=== PATIENT | female | born 1945 | race Caucasian/White ===

== ENCOUNTER 2021-07-12 22:26 | Observation (INO) ==
[2021-07-12] MEDS ORDERED: Isovue-370 500 ML BOTTLE IVP ONE ×2 (22:40→23:35)
[2021-07-12] MEDS ORDERED: Aspirin 325 MG TABLET PO STA (22:51)
[2021-07-12] MEDS ORDERED: Nitroglycerin 0.4 MG TAB.SUBL SL PRN (22:51)
[2021-07-12 23:09] LABS: Basophils # 0.1 K/mcL (0.0-0.2); Basophils % 0.6 %; Eosinophils # 0.2 K/mcL (0.0-0.6); Eosinophils % 2.3 %; Hematocrit 47.4 % (35.3-44.9); Hemoglobin 15.4 g/dL (11.5-15.4); Immature Granulocytes % 0.5 % (0-4); Lymphocytes # 2.7 K/mcL (0.6-4.6); Lymphocytes % 29.7 %; Mean Corpuscular HGB Conc 32.5 g/dL (31.6-35.5); Mean Corpuscular Hemoglobin 28.1 pg (28.0-33.3); Mean Corpuscular Volume 86.3 fL (83.0-100.0); Mean Platelet Volume 9.3 fL (9.4-12.4); Monocytes # 0.6 K/mcL (0.0-1.3); Monocytes % 6.6 %; Neutrophils # 5.6 K/mcL (1.6-8.9); Platelet Count 195 K/mcL (140-400); Red Blood Count 5.49 M/mcL (3.82-4.97); Red Cell Distribution Width 15.9 % (11.5-14.5); Segmented Neutrophils % 60.3 %; White Blood Count 9.2 K/mcL (4.3-11.1)
[2021-07-12 23:23] LABS: Albumin 4.6 g/dL (3.5-5.7); Albumin/Globulin Ratio 1.4 (1.1-2.2); Bilirubin,Direct 0.1 mg/dL (0.0-0.2); Bilirubin,Indirect 0.5 mg/dL (0.0-1.0); Bilirubin,Total 0.6 mg/dL (0.3-1.0); Globulin 3.2 g/dL (2.4-3.5); Total Protein 7.8 g/dL (6.4-8.9)
[2021-07-12 23:25] LABS: BUN/Creatinine Ratio 19 (6-26); Blood Urea Nitrogen 20 mg/dL (8-23); Calcium 9.6 mg/dL (8.6-10.3); Carbon Dioxide 28 mEq/L (23-29); Chloride 103 mEq/L (98-107); Glucose 111 mg/dL (70-105); Osmolality,Calculated 295 (280-300); Potassium 2.9 mEq/L (3.5-5.1); Sodium 141 mEq/L (136-145); eGFR For African Americans > 60 (> 60); eGFR For Non-African Americans 51 (> 60)
[2021-07-12 23:26] LABS: Troponin I < 0.03 ng/mL (< 0.04)
[2021-07-13] MEDS ORDERED: Potassium Chloride Elixir 20 MEQ/15 ML UDC PO ONE (00:43)
[2021-07-13] MEDS ORDERED: Pantoprazole 40 MG VIAL IVP ONE (01:13)
[2021-07-13] MEDS ORDERED: Simethicone 80 MG TAB.CHEW PO PRN (03:04)
[2021-07-13] MEDS ORDERED: Perflutren Lipid Microsphere 1.3 ML in 0.9 % Sodium Chloride 8.7 ML IVP PRN (03:23)
[2021-07-13] MEDS ORDERED: Naloxone 0.4 MG/ML INJ IVP PRN (03:35)
[2021-07-13] MEDS ORDERED: Morphine Sulfate 2 MG/ML SYRINGE IVP PRN (04:16)
[2021-07-13 04:49] LABS: Bilirubin,Urine Negative (Negative); Blood,Urine Moderate (Negative); Clarity,Urine Clear (Clear); Color,Urine Yellow (Yellow); Glucose,Urine (UA) Normal (Normal); Ketones,Urine Negative (Negative); Leukocyte Esterase,Urine Negative (Negative); Nitrite,Urine Negative (Negative); Protein,Urine Trace mg/dL (Neg-Trace); RBC,Urine 30-50 per hpf (0-3); Specific Gravity,Urine > 1.030 (1.010-1.025); Squamous Epithelial Cell,Urine Few per hpf (None-Few)
[2021-07-13 04:58] LABS: Bacteria,Urine Few per hpf (None-Few)
[2021-07-13 06:34] LABS: Hematocrit 44.3 % (35.3-44.9); Hemoglobin 14.4 g/dL (11.5-15.4); Mean Corpuscular HGB Conc 32.5 g/dL (31.6-35.5); Mean Corpuscular Hemoglobin 27.8 pg (28.0-33.3); Mean Corpuscular Volume 85.5 fL (83.0-100.0); Mean Platelet Volume 9.6 fL (9.4-12.4); Platelet Count 201 K/mcL (140-400); Red Blood Count 5.18 M/mcL (3.82-4.97); Red Cell Distribution Width 15.8 % (11.5-14.5); White Blood Count 9.7 K/mcL (4.3-11.1)
[2021-07-13 07:01] LABS: Influenza A PCR Negative (Negative); Influenza B PCR Negative (Negative); Resp. Syncytial Virus PCR Negative (Negative)
[2021-07-13 07:04] LABS: BUN/Creatinine Ratio 18 (6-26); Blood Urea Nitrogen 16 mg/dL (8-23); Calcium 9.2 mg/dL (8.6-10.3); Carbon Dioxide 26 mEq/L (23-29); Chloride 103 mEq/L (98-107); Chol/HDL Ratio 2.3 (0-4.9); Cholesterol 121 mg/dL (< 200); Glucose 120 mg/dL (70-105); HDL Cholesterol 53 mg/dL (40-59); LDL Cholesterol,Calculated 57 mg/dL (< 100); Magnesium 1.9 mg/dL (1.6-2.6); Osmolality,Calculated 288 (280-300); Potassium 3.5 mEq/L (3.5-5.1); Sodium 138 mEq/L (136-145); Triglycerides 53 mg/dL (< 150); eGFR For African Americans > 60 (> 60); eGFR For Non-African Americans > 60 (> 60)
[2021-07-13 07:10] LABS: Thyroid Stimulating Hormone 6.134 mcIU/mL (0.340-5.600)
[2021-07-13 07:25] LABS: INR 1.5; Prothrombin Time 17.1 Seconds (9.4-12.1)
[2021-07-13 07:28] LABS: Activated Partial Thrombo Time 38.8 Seconds (26.0-36.0)
[2021-07-13 07:37] LABS: SARS-CoV-2 by PCR (In House) Negative (Negative)
[2021-07-13] MEDS ORDERED: *HR* Amiodarone 200 MG TABLET PO SCH (09:00)
[2021-07-13] MEDS: Aspirin Enteric Coated 81 MG Tablet PO SCH (09:36)
[2021-07-13] MEDS: Gabapentin 100 MG CAPSULE PO SCH ×3 (09:37→20:45)
[2021-07-13] MEDS: hydroCHLOROthiazide 25 MG TABLET PO SCH (09:37)
[2021-07-13 10:06] LABS: Estimated Average Glucose 140 mg/dl; Hemoglobin A1C 6.5 %
[2021-07-13] MEDS: Ondansetron 4 MG/2 ML VIAL IVP PRN ×2 (10:19→20:48)
[2021-07-13] MEDS ORDERED: *HR* Rivaroxaban 10 MG TABLET PO SCH (17:00)
[2021-07-13] MEDS: Ranolazine 500 MG TAB.ER.12H PO SCH (20:46)
[2021-07-14 04:47] LABS: Hematocrit 45.5 % (35.3-44.9); Hemoglobin 14.4 g/dL (11.5-15.4); Mean Corpuscular HGB Conc 31.6 g/dL (31.6-35.5); Mean Corpuscular Volume 88.5 fL (83.0-100.0); Mean Platelet Volume 9.5 fL (9.4-12.4); Platelet Count 165 K/mcL (140-400); Red Blood Count 5.14 M/mcL (3.82-4.97); Red Cell Distribution Width 16.3 % (11.5-14.5); White Blood Count 5.8 K/mcL (4.3-11.1)
[2021-07-14 05:01] LABS: BUN/Creatinine Ratio 13 (6-26); Blood Urea Nitrogen 12 mg/dL (8-23); Calcium 8.7 mg/dL (8.6-10.3); Carbon Dioxide 30 mEq/L (23-29); Chloride 105 mEq/L (98-107); Glucose 88 mg/dL (70-105); Osmolality,Calculated 291 (280-300); Potassium 3.3 mEq/L (3.5-5.1); Sodium 141 mEq/L (136-145); eGFR For African Americans > 60 (> 60); eGFR For Non-African Americans 60 (> 60)
[2021-07-14] MEDS: Ranolazine 500 MG TAB.ER.12H PO SCH (07:54)
[2021-07-14] MEDS ORDERED: Perflutren Lipid Microsphere 1.3 ML in 0.9 % Sodium Chloride 8.7 ML IVP PRN (07:54)
[2021-07-14] MEDS: Aspirin Enteric Coated 81 MG Tablet PO SCH (07:54)
[2021-07-14] MEDS: Gabapentin 100 MG CAPSULE PO SCH ×2 (07:54→15:22)
[2021-07-14] MEDS: hydroCHLOROthiazide 25 MG TABLET PO SCH (07:57)
[2021-07-14 14:21] VITALS: BP 118/60; PULSE 60; TEMP 97.5; O2SAT 94
[2021-07-14] MEDS ORDERED: *HR* Amiodarone 200 MG TABLET PO SCH (21:00)
== END 2021-07-14 15:27 | disposition home or self-care (01) ==
LOC: EMEROOARM 22:26 → 3BNU 22:26 → MERGE 07-13 02:11 → 3BNU 07-13 04:30
PROVIDERS: ADMIT Internal Medicine; ATTEND Internal Medicine